=== PATIENT | female | born 1960 | race Caucasian/White ===

== ENCOUNTER → 2019-10-12 13:05 | Outpatient (BNVA) | payer OTHER, SELFPAY | PROVIDERS: Family Provider Family Medicine; PCP Family Medicine; Visit Provider Internal Medicine Rheumatology | DX: M45.9 Ankylosing spondylitis of unspecified sites in spine (principal); M06.4 Inflammatory polyarthropathy; K21.9 Gastro-esophageal reflux disease without esophagitis; Z79.899 Other long term (current) drug therapy; F17.210 Nicotine dependence, cigarettes, uncomplicated | CPT/HCPCS: 99213 ==

== ENCOUNTER 2020-08-21 14:03 | Outpatient (CLI) | payer OTHER, SELFPAY ==
--- NOTE | 2020-08-21 14:09 | CT_ITS ---
WS: [id number] CT NECK TECHNIQUE: Contrast-enhanced CT of the neck with coronal and sagittal reformatted images. CLINICAL INFORMATION: NECK MASS COMPARISON: None. DLP: 699.[address] scans at [facility] use at least one of these dose optimization techniques: automat ed exposure control; mA and/or kV adjustment per patient size (includes targeted exams where dose is matched to clinical indication); or iterative reconstruction. FINDINGS: Parotid glands are normal. Normal submandibular glands. Tongue base is normal in appearance. Normal p arapharyngeal fat. Mastoid air cells and paranasal sinuses are well aerated. Normal posterior nasopharynx. No evidence of supraglottic or glottic mass. Normal epiglottis. Normal piriform sinuses. Normal subglottic airway. Enlarged right neck lymph node/mass measuring 2.0 x 1.7 x 2.3 cm. This is posterior to the right subm andibular gland and anterior to the sternocleidomastoid, just inferior to the parotid tail. No other enlarged cervical lymph nodes. Partially visualized intracranial contents are normal. Lung apices are well aerated. CT/CT neck w con* [id number] IMPRESSION: 1. Enlarged level 2 right neck cervical lymph node/mass measuring 2.0 x 1.7 x 2.3 CM. Findings are nonspecific but suspicious for neoplasm. Recommend ENT con sult and/or ultrasound-guided FNA for further evaluation 2. No evidence of supraglottic or glottic mass. Normal epiglottis. Subglottic airway is normal. 3. Paranasal sinuses and mastoid air cells are well aerated.
[2020-08-21] MEDS: iohexol 300 mg/mL 100 mL Btl IV (14:57)
== END 2020-08-21 14:04 | disposition home or self-care (01) ==
LOC: RAD 14:08
PROVIDERS: PCP Family Medicine; Visit Provider Family Medicine
DX: R22.1 Localized swelling, mass and lump, neck (principal)
CPT/HCPCS: 70491

== ENCOUNTER 2020-09-04 07:04 | Outpatient (CLI) | payer OTHER, SELFPAY ==
--- NOTE | 2020-09-04 07:30 | US_ITS ---
NOTE: Order was edited; original sign date/time 09/04/2020 1228 WS: [id number] INDICATION: right neck mass TECHNIQUE: Ultrasound-guided FNA FINDINGS: The procedure including risks, benefits, and complications were discussed with the patient who agreed to proceed. Using sterile technique the patient was prepped and draped in the usual sterile fashion. After 1% lidocaine using ultrasound guidance 5 passes were made into the right neck mass. No immediate complications. Pathology was present for slide preparation. [facility] US/US guide needle placela [id number] IMPRESSION: Uncomplicated ultrasound-guided FNA
[2020-09-06 10:36] LABS: Miscellaneous Test See Scanned Lab Rpt
== END 2020-09-04 07:05 | disposition home or self-care (01) ==
PROVIDERS: PCP Family Medicine; Visit Provider Family Medicine
DX: R22.1 Localized swelling, mass and lump, neck (principal)
CPT/HCPCS: 10005; 38505; 76942; 88305

== ENCOUNTER 2020-09-26 12:51 | Outpatient (CLI) | payer OTHER, SELFPAY ==
--- NOTE | 2020-09-26 18:36 | ONC CON_ITS ---
Dr. Flores New Patient Note Patient: Yessica Youngblood Unit #: [id number]: 1960 Dicatated By: Anmol Flores M.D.Date of Visit: Sep 26, 2020 Onc MED New Patient/Consult Referring Physician: Dr. BENITA STANFORD M.D. Chief Complaint: Lymphoma. History of Present Illness: This is a 60-year-old woman with right cervical lymphadenopathy and suspected lymphoma. She has a longstanding history of ankylosing spondylitis. She had previously been on treatment with methotrexate for 5 or 6 years. She opted to stop taking it about a year ago. Sometime around May she had become aware of a knot on the right side of her neck. At first it seemed to be enlarging, but then got smaller again. Her neck CT on 08/21/2020 showed an enlarged right lymph node/mass just posterior to the right submandibular gland and anterior to the sternocleidomastoid muscle. It measured 2.0 x 1.7 x 2.3 cm. There were no other enlarged cervical lymph nodes noted. The findings were felt to be suspicious for neoplasm. She then underwent ultrasound guided fine-needle aspiration on 09/04/2020. Cytology showed scattered mononuclear lymphoid elements with air drying artifact and degenerative changes. There was minimal cellularity present on the sample. Flow cytometry reported a monotypic B-cell population comprising approximately 20% of the total cellularity. The B cells were positive for CD45, CD19 (dim expression), CD20, CD10, FMC 7, and kappa light chain. They were negative for CD5 and CD23. The findings were suggestive of involvement by B-cell neoplasm with a germinal center phenotype with the reported differential to include follicular lymphoma, diffuse large B-cell lymphoma, and Burkitt lymphoma. She has been feeling pretty good generally, though given her family history she has been extremely anxious about the prospect of possibly having lymphoma. She describes her energy as medium. She still has normal activity, though. Her appetite has been good. She does not have fever or night sweats. She does have hot flashes, that has been going on for years. She has some sinus symptoms and she reports having a dryish cough. Her breathing is sometimes heavy. She does not complain of chest pain. She has been having loose stools for least 5 years, presumably irritable bowel syndrome. Lately it has been a little worse. She has no other GI complaints. She has some urgency with urination. She has back pain and some joint pain associated with the ankylosing spondylitis, but that has not changed. She has minor headaches. She has no focal neurologic symptoms. She does report that she bruises very easily. Past Medical History: Her medical history includes ankylosing spondylitis and irritable bowel syndrome. Past Surgical History: Her other surgical/procedural history includes D & C, ovarian biopsy, hysterectomy in 1998, and repair of rectal fissure in 1985. Medications: Sleep Aid 1 (25 mg) Tablet Oral at bedtime Allergies: Y-Gesic Social History: Ms. Youngblood is . 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 She has a history of smoking 1/2 pack of cigarettes daily. She had quit smoking 20 years ago, but she then started again. She is currently smoking just 1 or 2 cigarettes/day. She has had only rare alcohol use. Family History: Father of follicular lymphoma. Mother still living at age 82. She has ankylosing spondylitis and she has been treated for breast cancer. Her sister and daughters also have ankylosing spondylitis. Review Of Symptoms: Constitutional - She has generally been feeling okay. She's noticed a slight decrease in her energy but she is still able to do all her normal activities. She works full-time. Her appetite is good and weight is stable. No fever or night sweats. She has hot flashes. ECOG score is 0, Eyes - No change in vision, ENMT - No hearing loss or tinnitus. She has chronic sinusitis. No mouth sores. No sore throat or difficulty swallowing, Hematologic/Lymphatic - She bruises easily, Respiratory - She has occasional shortness of breath. She has a persistent dry cough. No pleuritic pain or hemoptysis, Cardiovascular - No angina pain. No palpitations, Gastrointestinal - No nausea or vomiting. No heartburn or acid reflux. She reports loose stools. No constipation. No blood in the stool or black stools, Genitourinary (F) - No dysuria or hematuria. No urinary frequency. She has urgency, no incontinence, Musculoskeletal - She has intermittent generalized joint pain and she has back pain associated with her ankylosing spondylitis, Integumentary - No skin rash, Neurologic - She has minor headaches. No dizziness. No numbness or tingling. No other focal neurologic symptoms, Psychiatric - She has anxiety. No depression. She has difficulty falling asleep. She is taking an over the counter sleep aid. Vital Signs: Performed on Sep 26, 2020 13:52: 0, 29.80, 1.84 sq.m, 64 in, 99 %, 75 /min, 16 /min, 152/74 mm(hg) (HIGH), 98.9 F (HIGH), and 173.6 lbs (HIGH). Physical Examination: Constitutional - She appears to be in good general health, Eyes - Sclerae nonicteric. Conjunctivae clear, ENMT - No lesions noted in the oral cavity, Neck - No mass or thyromegaly, Hematologic/Lymphatic - There is a firm, 1 cm node palpable in the submandibular area on the right side. There is no other cervical, clavicular, or axillary adenopathy noted, Respiratory - Lungs are clear with good air movement bilaterally, Cardiovascular - Heart rhythm is regular. There is no murmur, gallop, or rub noted, Abdomen - Soft and non-tender. Liver and spleen are not enlarged. There is no abdominal mass or ascites noted and there is no inguinal adenopathy, Extremities - No edema. Pedal pulses are palpable bilaterally, Integumentary - No rashes. No suspicious skin lesions noted, Neurologic - No focal neurologic deficits noted. Problem List: 1. Right cervical lymphadenopathy. She underwent FNA biopsy on 09/04/2020. Cytology was nondiagnostic. Flow cytometry showed monotypic B cells which were felt to be suspicious for lymphoma. 2. She has longstanding ankylosing spondylitis, previously on methotrexate for 5 or 6 years. It was stopped 1 year ago. 3. Irritable bowel syndrome. Problems Addressed with this Encounter and Plan: Right cervical lymphadenopathy. Flow cytometry on an FNA biopsy showed monotypic B cells which were felt to be suspicious for lymphoma. This developed in the setting of previous methotrexate therapy for ankylosing spondylitis. It was stopped about a year ago. The cytology and flow cytometry findings were reviewed with the patient and we discussed the clinical implications. She is aware that the biopsy sample was very small and insufficient for a definitive diagnosis. It is, nonetheless, suspicious for lymphoma, but she will require additional biopsy to confirm the diagnosis and accurately categorize the lymphoma. I suspect that it is going to be low-grade and it is interesting to speculate to what extent the methotrexate may have contributed to its development. She has already arranged to have her further evaluation at [facility] in [place], [place]. It will no doubt include a repeat biopsy and a complete staging evaluation. She is advised that we can assist with any treatment or follow-up care that needs to be provided locally. Signed By: Anmol Flores M.D. <<Signature on File>>
== END 2020-09-26 12:52 | disposition home or self-care (01) ==
LOC: ONCMED 12:52
PROVIDERS: PCP Family Medicine; Visit Provider Internal Medicine Medical Oncology
DX: R59.0 Localized enlarged lymph nodes (principal); R79.89 Other specified abnormal findings of blood chemistry; M45.9 Ankylosing spondylitis of unspecified sites in spine; F17.210 Nicotine dependence, cigarettes, uncomplicated; Z79.899 Other long term (current) drug therapy
CPT/HCPCS: 99204

== ENCOUNTER → 2021-12-10 10:58 | Outpatient (BNVA) | payer OTHER, SELFPAY | PROVIDERS: PCP Family Medicine; Referring Provider Family Medicine; Visit Provider Orthopaedic Surgery | DX: S92.902A Unspecified fracture of left foot, initial encounter for closed fracture (principal); X58.XXXA Exposure to other specified factors, initial encounter | CPT/HCPCS: 73630 ==

== ENCOUNTER 2021-12-20 15:08 | Outpatient (CLI) | payer OTHER, SELFPAY ==
--- NOTE | 2021-12-20 15:30 | MM_ITS ---
WS: [id number] VIEWS: MLO and CC views both breasts. 3D digital tomosynthesis is also included in this exam. Comparison made with prior exam of 11/12/2015, 09/08/2018, 07/30/2020. Findings: A new 1 cm sharply circumscribed nodule is noted in the upper posterior left breast on the MLO view o nly. This lesion does not have suspicious appearance. Exaggerated craniocaudal and 90 degree lateral views are recommended as well as regional ultrasound for further workup. Remaining aspects of both br easts are unchanged. No suspicious calcification or architectural distortion in either breast.Scatter ed fibroglandular densities. MM/[place] [id number] Impression: BI-RADS: 0-Incomplete: Need additional imaging evaluation FOLLOW-UP: Need Additional Imaging This mammogram was also analyzed by the Computer Aided Detection System R2 Imag e Mechanic Recovery.
== END 2021-12-20 15:09 | disposition home or self-care (01) ==
LOC: RAD 15:12
PROVIDERS: PCP Family Medicine; Visit Provider Family Medicine
DX: Z12.31 Encounter for screening mammogram for malignant neoplasm of breast (principal)
CPT/HCPCS: 77063; 77067

== ENCOUNTER → 2022-01-07 15:38 | Outpatient (BNVA) | payer OTHER, SELFPAY | PROVIDERS: PCP Family Medicine; Visit Provider Physician Assistant | DX: M84.375D Stress fracture, left foot, subsequent encounter for fracture with routine healing (principal) | CPT/HCPCS: 73620 ==

== ENCOUNTER 2022-01-15 13:44 | Outpatient (CLI) | payer OTHER, SELFPAY ==
--- NOTE | 2022-01-15 14:03 | MM_ITS ---
WS: [id number] LEFT 3D TOMOSYNTHESIS DIGITAL MAMMOGRAPHY WITH CAD CLINICAL INFORMATION: ABNORMAL MAMMOGRAM COMPARISON: December 20, 2021 TECHNIQUE: 3 views of the left breast were obtained. FINDINGS: Scattered fibroglandular densities of the left breast. Stable 1.3 cm lymph node in the upper posterio r LEFT breast along the axillary tail is unchanged. Ultrasound is pending. ULTRASOUND BREAST LEFT TECHNIQUE: Ultrasound left breast focused area of concern. CLINICAL INFORMATION: ABNORMAL MAMMOGRAM FINDINGS: Ultrasound LEFT axilla in the area of concern. At the 3:00 position 6 cm from the nipple is a 1.3 x 0 .8 x 1.2 cm enlarged lymph node with cortical thickening. This has an abnormal appearance. Consider f urther evaluation ultrasound-guided biopsy. See comment below. MM/[place] [id number] IMPRESSION: Abnormal lymph node LEFT axillary tail. Patient with reported histo ry of recent lymphoma diagnosis. No prior chest CT imaging available. Recommend correlation with outside staging examinations as this may be known and related to patient's lymphoma. Otherwise this can be further evaluated with ultrasound guided biopsy. BI-RADS: 4-Suspicious Finding-Biopsy Should Be Considered FOLLOW UP: See Report
== END 2022-01-15 13:45 | disposition home or self-care (01) ==
LOC: RAD 13:45
PROVIDERS: PCP Family Medicine; Visit Provider Family Medicine
DX: R92.8 Other abnormal and inconclusive findings on diagnostic imaging of breast (principal)
CPT/HCPCS: 76642; 77061

== ENCOUNTER → 2022-04-23 15:09 | Outpatient (BNVA) | payer OTHER, SELFPAY | PROVIDERS: PCP Family Medicine; Visit Provider Podiatrist Foot & Ankle Surgery | DX: M79.672 Pain in left foot (principal) | CPT/HCPCS: 73630 ==

== ENCOUNTER → 2022-06-02 13:53 | Outpatient (BNVA) | payer OTHER, SELFPAY | PROVIDERS: PCP Family Medicine; Visit Provider Podiatrist Foot & Ankle Surgery | DX: B35.3 Tinea pedis (principal); L60.3 Nail dystrophy; S92.325G Nondisplaced fracture of second metatarsal bone, left foot, subsequent encounter for fracture with delayed healing; S92.335G Nondisplaced fracture of third metatarsal bone, left foot, subsequent encounter for fracture with delayed healing; S92.355G Nondisplaced fracture of fifth metatarsal bone, left foot, subsequent encounter for fracture with delayed healing; X58.XXXD Exposure to other specified factors, subsequent encounter; S92.355K Nondisplaced fracture of fifth metatarsal bone, left foot, subsequent encounter for fracture with nonunion | CPT/HCPCS: 73630 ==

== ENCOUNTER → 2022-08-20 18:43 | Outpatient (BNVA) | payer OTHER, SELFPAY | PROVIDERS: PCP Family Medicine; Visit Provider Registered Nurse Neonatal Intensive Care | DX: M79.672 Pain in left foot (principal); M84.475A Pathological fracture, left foot, initial encounter for fracture | CPT/HCPCS: 73630 ==

== ENCOUNTER → 2023-04-10 11:49 | Outpatient (BNVA) | payer OTHER, SELFPAY | PROVIDERS: PCP Family Medicine; Visit Provider Nurse Practitioner Family | DX: I10 Essential (primary) hypertension (principal); F41.9 Anxiety disorder, unspecified; E66.9 Obesity, unspecified | CPT/HCPCS: 80053; 80061; 84443 ==

== ENCOUNTER 2023-04-13 08:44 | Outpatient (CLI) | payer OTHER, SELFPAY ==
--- NOTE | 2023-04-13 08:53 | US_ITS ---
WS: [id number] BILATERAL 3D TOMOSYNTHESIS DIGITAL DIAGNOSTIC MAMMOGRAPHY WITH CAD CLINICAL INFORMATION: ABNORMAL MAMMO HISTORY: Previous biopsy of LEFT axillary lymph node recommended January 15, 2022, however, patient esdras chun undergoing evaluation/surveillance at [facility] for lymphoma by Dr. Stubbs. Patient reports Bi opsy deferred by her physicians at [facility]. Biopsy was not performed. Patient is back today fo r annual surveillance. COMPARISON: January 15, 2022 TECHNIQUE: Bilateral CC, MLO, and ML views. FINDINGS: Scattered fibroglandular densities bilaterally. Previously described LEFT extra-axial lymph node has decreased in size slightly today measuring 1.1 cm. Ultrasound is pending. Otherwise no suspicious focal mass, asymmetry, calcifications, or architectural distortion. ULTRASOUND BREAST LEFT TECHNIQUE: Ultrasound left breast focused area of concern. CLINICAL INFORMATION: ABNORMAL MAMMO COMPARISON: January 15, 2022 FINDINGS: Ultrasound LEFT axilla in the area of concern. At the 3:00 position 6 cm from the nipple is a 1.0 x 0 .6 x 0.8 cm lymph node. This is decreased in size compared to previous with persistent fatty hilum. N o significant cortical thickening. Patient reported currently being evaluated at [facility] for ly mphoma. US/US breast LT limited* [id number] IMPRESSION: BI-RADS: 2-Benign FOLLOW UP: 1 Year Follow-up Recommend return to annual screening mammography.
== END 2023-04-13 08:45 | disposition home or self-care (01) ==
PROVIDERS: PCP Family Medicine; Visit Provider Family Medicine
DX: R92.8 Other abnormal and inconclusive findings on diagnostic imaging of breast (principal)
CPT/HCPCS: 76642; 77062; G0279

== ENCOUNTER 2024-04-19 08:29 | Oncology outpatient (recurring) (ONCR) | payer OTHER, SELFPAY ==
[2024-04-19 09:09] LABS: Basophils # 0.1 10^3/uL (0.0-0.1); Eosinophils # 0.2 10^3/uL (0.0-0.8); Eosinophils % 2.9 %; Hematocrit 41.4 % (36-47); Lymphocytes # 0.7 10^3/uL (0.8-4.8); Lymphocytes % 9.6 %; Mean Corpuscular HGB Conc 31.6 g/dL (30-55); Mean Corpuscular Hemoglobin 27.4 pg (27-33); Mean Corpuscular Volume 86.6 fl (85-98); Monocytes # 0.3 10^3/uL (0.2-0.9); Monocytes % 4.7 %; Neutrophils # 5.96 10^3/uL (1.8-7.7); Neutrophils % 81.4 %; Nucleated Red Blood Cells % 0 %; Platelet Count 228 10^3/cmm (157-399); Red Blood Count 4.78 10^6/uL (3.85-5.65); Red Cell Distribution Width 13.5 % (12.1-15.1); White Blood Count 7.31 10^3/uL (3.29-11.43)
[2024-04-19 09:35] LABS: Alanine Aminotransferase 15 U/L (0-33); Albumin Level 4.3 g/dL (3.5-5.2); Alkaline Phosphatase 137 U/L (35-105); Anion Gap 18.2 (5-19); Aspartate Amino Transferase 26 U/L (0-32); Blood Urea Nitrogen 14 mg/dL (8-23); Calcium 10.5 mg/dL (8.5-10.5); Carbon Dioxide 24 mmol/L (22-29); Chloride 97 mmol/L (98-107); Globulin 3.1 g/dL (1.3-4.6); Glomerular Filtration Rate 56.2 mL/min (90-130); Glucose 138 mg/dL (65-115); Lactate Dehydrogenase 221 U/L (135-214); Osmolality Calculated 283 mOsm/kg (285-295); Potassium 4.2 mmol/L (3.5-5.1); Sodium 135 mmol/L (136-145); Total Bilirubin 0.2 mg/dL (0.15-1.2); Total Protein 7.4 g/dL (6.6-8.7)
== END 2024-05-07 23:55 | disposition home or self-care (01) ==
PROVIDERS: PCP Family Medicine; Visit Provider Internal Medicine Medical Oncology
DX: C82.38 Follicular lymphoma grade IIIa, lymph nodes of multiple sites (principal)
CPT/HCPCS: 36415; 80053; 83615; 85025

== ENCOUNTER 2024-06-06 13:00 | Oncology outpatient (recurring) (ONCR) | payer OTHER, SELFPAY ==
[2024-05-30] VITALS (14 sets, daily range): BP systolic 104–149; BP diastolic 58–79; PULSE 59–101; RESP 16–20; TEMP 36.3–38.6; O2SAT 95–99
[2024-05-30 08:20] LABS: Basophils # 0.1 10^3/uL (0.0-0.1); Basophils % 1.2 %; Eosinophils # 0.2 10^3/uL (0.0-0.8); Hematocrit 35.4 % (36-47); Lymphocytes # 0.5 10^3/uL (0.8-4.8); Lymphocytes % 7.2 %; Mean Corpuscular HGB Conc 32.8 g/dL (30-55); Mean Corpuscular Hemoglobin 27.8 pg (27-33); Mean Corpuscular Volume 84.7 fl (85-98); Mean Platelet Volume 10.2 fL (7.4-10.4); Monocytes # 0.5 10^3/uL (0.2-0.9); Monocytes % 6.5 %; Neutrophils # 6.15 10^3/uL (1.8-7.7); Neutrophils % 81.4 %; Nucleated Red Blood Cells % 0 %; Platelet Count 341 10^3/cmm (157-399); Red Blood Count 4.18 10^6/uL (3.85-5.65); Red Cell Distribution Width 13.4 % (12.1-15.1); White Blood Count 7.55 10^3/uL (3.29-11.43)
[2024-05-30 09:22] LABS: Hepatitis B Core AB, Total Non-Reactive (Nonreactive); Hepatitis B Surface AB < 3.5 (11.5-1000); Hepatitis B Surface Antigen Non-Reactive (Nonreactive)
[2024-05-30 09:42] LABS: Alanine Aminotransferase 16 U/L (0-33); Albumin Level 3.9 g/dL (3.5-5.2); Alkaline Phosphatase 227 U/L (35-105); Anion Gap 19.5 (5-19); Aspartate Amino Transferase 28 U/L (0-32); Blood Urea Nitrogen 12 mg/dL (8-23); Calcium 10.3 mg/dL (8.5-10.5); Carbon Dioxide 23 mmol/L (22-29); Chloride 97 mmol/L (98-107); Creatinine Clr Calc Pharmacy 62.1677; Globulin 3.3 g/dL (1.3-4.6); Glomerular Filtration Rate 63.4 mL/min (90-130); Glucose 105 mg/dL (65-115); Osmolality Calculated 282 mOsm/kg (285-295); Potassium 3.5 mmol/L (3.5-5.1); Sodium 136 mmol/L (136-145); Total Bilirubin 0.2 mg/dL (0.15-1.2); Total Protein 7.2 g/dL (6.6-8.7)
[2024-05-30] MEDS: sodium chloride 0.9% 250 ML 75 ML IV (09:57)
[2024-05-30] MEDS: diphenhydrAMINE 50 mg/mL SDV 1mL 25 MG IVP ×2 (09:58→12:13)
[2024-05-30] MEDS: acetaminophen 325 mg Tablet 650 MG PO (09:58)
[2024-05-30] MEDS: rituximab-abbs 500 MG, rituximab-abbs 150 MG in sodium chloride 0.9% 500 ML 43.8 MG IV (10:45)
[2024-05-30] MEDS: sodium chloride 0.9% 500 ML 600 ML IV (12:05)
[2024-05-30] MEDS: meperidine 50 mg/mL INJ 25 MG IVP (12:10)
[2024-05-30] MEDS: methylPREDNISolone sod succ 125 mg/2 mL INJ 60 MG IV (12:15)
[2024-05-30] MEDS: ibuprofen 600 mg Tablet PO (12:29)
[2024-05-30] MEDS: sodium chloride 0.9% 1,000 ML 75 ML IV (13:21)
[2024-06-06 12:50] LABS: Basophils # 0.1 10^3/uL (0.0-0.1); Basophils % 0.8 %; Eosinophils # 0.3 10^3/uL (0.0-0.8); Eosinophils % 4.7 %; Hematocrit 36.7 % (36-47); Lymphocytes # 0.4 10^3/uL (0.8-4.8); Lymphocytes % 5.5 %; Mean Corpuscular HGB Conc 30.5 g/dL (30-55); Mean Corpuscular Hemoglobin 27.2 pg (27-33); Mean Corpuscular Volume 89.1 fl (85-98); Mean Platelet Volume 10.7 fL (7.4-10.4); Monocytes # 0.3 10^3/uL (0.2-0.9); Monocytes % 3.4 %; Neutrophils # 6.14 10^3/uL (1.8-7.7); Neutrophils % 84.1 %; Nucleated Red Blood Cells % 0 %; Platelet Count 259 10^3/cmm (157-399); Red Blood Count 4.12 10^6/uL (3.85-5.65); Red Cell Distribution Width 14.1 % (12.1-15.1)
[2024-06-06 13:11] LABS: Alanine Aminotransferase 22 U/L (0-33); Albumin Level 3.5 g/dL (3.5-5.2); Alkaline Phosphatase 232 U/L (35-105); Anion Gap 17.7 (5-19); Aspartate Amino Transferase 26 U/L (0-32); Blood Urea Nitrogen 13 mg/dL (8-23); Carbon Dioxide 23 mmol/L (22-29); Chloride 95 mmol/L (98-107); Creatinine Clr Calc Pharmacy 62.1677; Globulin 3.6 g/dL (1.3-4.6); Glomerular Filtration Rate 63.4 mL/min (90-130); Glucose 81 mg/dL (65-115); Osmolality Calculated 273 mOsm/kg (285-295); Potassium 3.7 mmol/L (3.5-5.1); Sodium 132 mmol/L (136-145); Total Bilirubin 0.3 mg/dL (0.15-1.2); Total Protein 7.1 g/dL (6.6-8.7)
== END 2024-06-06 23:59 | disposition home or self-care (01) ==
PROVIDERS: Nurse Practitioner Family; PCP Family Medicine; Visit Provider Internal Medicine Hematology & Oncology
DX: Z53.9 Procedure and treatment not carried out, unspecified reason; C82.38 Follicular lymphoma grade IIIa, lymph nodes of multiple sites
CPT/HCPCS: 36415; 80053; 85025; 86705; 86706; 87340; 96375; 96376; 96413; 96415; J1200; J2175; J2919; J7030; J7040; J7050; Q5115

== ENCOUNTER 2024-06-14 11:30 | Oncology outpatient (recurring) (ONCR) | payer OTHER, SELFPAY ==
[2024-06-07] VITALS (9 sets, daily range): BP systolic 100–143; BP diastolic 56–87; PULSE 61–94; RESP 16; TEMP 36.8–37.1; O2SAT 95–98
[2024-06-07] MEDS: sodium chloride 0.9% 250 ML 75 ML IV (12:15)
[2024-06-07] MEDS: acetaminophen 325 mg Tablet 650 MG PO (12:16)
[2024-06-07] MEDS: diphenhydrAMINE 50 mg/mL SDV 1mL 25 MG IVP (12:16)
[2024-06-07] MEDS: methylPREDNISolone sod succ 125 mg/2 mL INJ IVP (12:17)
[2024-06-07] MEDS: rituximab-abbs 500 MG, rituximab-abbs 150 MG in sodium chloride 0.9% 500 ML 50 MG IV (13:01)
[2024-06-13 12:49] LABS: Basophils # 0.1 10^3/uL (0.0-0.1); Basophils % 0.9 %; Eosinophils # 0.5 10^3/uL (0.0-0.8); Hematocrit 36.7 % (36-47); Lymphocytes # 0.6 10^3/uL (0.8-4.8); Lymphocytes % 5.5 %; Mean Corpuscular HGB Conc 31.9 g/dL (30-55); Mean Corpuscular Hemoglobin 27.3 pg (27-33); Mean Corpuscular Volume 85.7 fl (85-98); Mean Platelet Volume 10.9 fL (7.4-10.4); Monocytes # 0.8 10^3/uL (0.2-0.9); Monocytes % 6.9 %; Neutrophils # 9.03 10^3/uL (1.8-7.7); Neutrophils % 81.1 %; Nucleated Red Blood Cells % 0 %; Platelet Count 233 10^3/cmm (157-399); Red Blood Count 4.28 10^6/uL (3.85-5.65); Red Cell Distribution Width 14.5 % (12.1-15.1); White Blood Count 11.14 10^3/uL (3.29-11.43)
[2024-06-13 13:10] LABS: Alanine Aminotransferase 59 U/L (0-33); Alkaline Phosphatase 284 U/L (35-105); Aspartate Amino Transferase 44 U/L (0-32); Blood Urea Nitrogen 14 mg/dL (8-23); Calcium 10.1 mg/dL (8.5-10.5); Carbon Dioxide 26 mmol/L (22-29); Chloride 96 mmol/L (98-107); Globulin 3.2 g/dL (1.3-4.6); Glomerular Filtration Rate 56.2 mL/min (90-130); Glucose 100 mg/dL (65-115); Osmolality Calculated 275 mOsm/kg (285-295); Sodium 132 mmol/L (136-145); Total Bilirubin 0.5 mg/dL (0.15-1.2); Total Protein 7.2 g/dL (6.6-8.7)
[2024-06-13 13:12] LABS: Anion Gap 13.7 (5-19); Lactate Dehydrogenase 222 U/L (135-214); Potassium 3.7 mmol/L (3.5-5.1)
[2024-06-14 12:10] VITALS: BP 109/57; PULSE 61; RESP 16; TEMP 36.7; O2SAT 98
[2024-06-14] MEDS: sodium chloride 0.9% 250 ML 75 ML IV (12:25)
[2024-06-14] MEDS: diphenhydrAMINE 50 mg/mL SDV 1mL 25 MG IVP (12:25)
[2024-06-14] MEDS: acetaminophen 325 mg Tablet 650 MG PO (12:25)
[2024-06-14] MEDS: methylPREDNISolone sod succ 125 mg/2 mL INJ IV (12:26)
[2024-06-14] MEDS: rituximab-abbs 500 MG, rituximab-abbs 150 MG in sodium chloride 0.9% 500 ML 108 MG IV (13:10)
[2024-06-14 13:15] VITALS: BP 109/67; PULSE 61; RESP 16; TEMP 36.5; O2SAT 99
[2024-06-14 13:45] VITALS: BP 112/66; PULSE 59; RESP 16; TEMP 36.8; O2SAT 96
[2024-06-14 14:15] VITALS: BP 115/67; PULSE 60; RESP 16; TEMP 36.6; O2SAT 98
[2024-06-14 15:34] VITALS: BP 108/65; PULSE 71; TEMP 36.7; O2SAT 99
== END 2024-06-14 23:59 | disposition home or self-care (01) ==
PROVIDERS: Nurse Practitioner Family; PCP Family Medicine; Visit Provider Internal Medicine Hematology & Oncology
DX: Z53.9 Procedure and treatment not carried out, unspecified reason; Z51.12 Encounter for antineoplastic immunotherapy; C82.38 Follicular lymphoma grade IIIa, lymph nodes of multiple sites; Z79.899 Other long term (current) drug therapy
CPT/HCPCS: 36415; 80053; 83615; 85025; 96375; 96413; 96415; J1200; J2919; J7040; J7050; Q5115

== ENCOUNTER 2024-07-06 12:30 | Oncology outpatient (recurring) (ONCR) | payer OTHER, SELFPAY ==
[2024-06-20 13:20] LABS: Basophils # 0.2 10^3/uL (0.0-0.1); Basophils % 3.1 %; Eosinophils # 0.6 10^3/uL (0.0-0.8); Eosinophils % 11.5 %; Hematocrit 39.2 % (36-47); Lymphocytes # 0.6 10^3/uL (0.8-4.8); Mean Corpuscular HGB Conc 30.4 g/dL (30-55); Mean Corpuscular Hemoglobin 27.2 pg (27-33); Mean Corpuscular Volume 89.5 fl (85-98); Mean Platelet Volume 11.6 fL (7.4-10.4); Monocytes # 0.3 10^3/uL (0.2-0.9); Monocytes % 5.9 %; Neutrophils % 65.8 %; Nucleated Red Blood Cells % 0 %; Platelet Count 209 10^3/cmm (157-399); Red Blood Count 4.38 10^6/uL (3.85-5.65); Red Cell Distribution Width 15.4 % (12.1-15.1); White Blood Count 5.47 10^3/uL (3.29-11.43)
[2024-06-20 13:40] LABS: Alanine Aminotransferase 302 U/L (0-33); Albumin Level 4.3 g/dL (3.5-5.2); Alkaline Phosphatase 330 U/L (35-105); Aspartate Amino Transferase 191 U/L (0-32); Blood Urea Nitrogen 13 mg/dL (8-23); Carbon Dioxide 24 mmol/L (22-29); Chloride 99 mmol/L (98-107); Globulin 3.1 g/dL (1.3-4.6); Glomerular Filtration Rate 72.7 mL/min (90-130); Glucose 73 mg/dL (65-115); Osmolality Calculated 281 mOsm/kg (285-295); Sodium 136 mmol/L (136-145); Total Bilirubin 0.4 mg/dL (0.15-1.2); Total Protein 7.4 g/dL (6.6-8.7)
[2024-06-20 13:45] LABS: Anion Gap 16.8 (5-19); Potassium 3.8 mmol/L (3.5-5.1)
[2024-06-27 12:38] LABS: Basophils # 0.2 10^3/uL (0.0-0.1); Basophils % 3.5 %; Eosinophils # 0.3 10^3/uL (0.0-0.8); Lymphocytes # 0.9 10^3/uL (0.8-4.8); Lymphocytes % 14.8 %; Mean Corpuscular HGB Conc 32.1 g/dL (30-55); Mean Corpuscular Hemoglobin 28.5 pg (27-33); Mean Corpuscular Volume 88.8 fl (85-98); Mean Platelet Volume 10.3 fL (7.4-10.4); Monocytes # 0.4 10^3/uL (0.2-0.9); Monocytes % 6.1 %; Neutrophils # 4.15 10^3/uL (1.8-7.7); Neutrophils % 69.8 %; Nucleated Red Blood Cells % 0 %; Platelet Count 209 10^3/cmm (157-399); Red Blood Count 4.28 10^6/uL (3.85-5.65); Red Cell Distribution Width 17.2 % (12.1-15.1); White Blood Count 5.95 10^3/uL (3.29-11.43)
[2024-06-27 12:55] LABS: Alanine Aminotransferase 150 U/L (0-33); Albumin Level 4.4 g/dL (3.5-5.2); Alkaline Phosphatase 298 U/L (35-105); Aspartate Amino Transferase 53 U/L (0-32); Blood Urea Nitrogen 17 mg/dL (8-23); Calcium 9.8 mg/dL (8.5-10.5); Carbon Dioxide 25 mmol/L (22-29); Chloride 103 mmol/L (98-107); Creatinine Clr Calc Pharmacy 70.1477; Globulin 2.6 g/dL (1.3-4.6); Glomerular Filtration Rate 72.7 mL/min (90-130); Glucose 127 mg/dL (65-115); Osmolality Calculated 291 mOsm/kg (285-295); Sodium 139 mmol/L (136-145); Total Bilirubin 0.3 mg/dL (0.15-1.2)
[2024-06-27 13:01] LABS: Anion Gap 14.7 (5-19); Lactate Dehydrogenase 205 U/L (135-214); Potassium 3.7 mmol/L (3.5-5.1)
[2024-07-04 12:47] LABS: Basophils # 0.2 10^3/uL (0.0-0.1); Basophils % 3.9 %; Eosinophils # 0.2 10^3/uL (0.0-0.8); Eosinophils % 5.3 %; Hematocrit 38.1 % (36-47); Lymphocytes # 0.7 10^3/uL (0.8-4.8); Lymphocytes % 16.5 %; Mean Corpuscular HGB Conc 32.5 g/dL (30-55); Mean Corpuscular Hemoglobin 28.6 pg (27-33); Mean Corpuscular Volume 87.8 fl (85-98); Mean Platelet Volume 10.2 fL (7.4-10.4); Monocytes # 0.4 10^3/uL (0.2-0.9); Monocytes % 9.3 %; Neutrophils # 2.78 10^3/uL (1.8-7.7); Neutrophils % 64.5 %; Nucleated Red Blood Cells % 0 %; Platelet Count 163 10^3/cmm (157-399); Red Blood Count 4.34 10^6/uL (3.85-5.65); White Blood Count 4.31 10^3/uL (3.29-11.43)
[2024-07-04 13:04] LABS: Alanine Aminotransferase 46 U/L (0-33); Albumin Level 4.2 g/dL (3.5-5.2); Alkaline Phosphatase 229 U/L (35-105); Anion Gap 13.2 (5-19); Aspartate Amino Transferase 35 U/L (0-32); Blood Urea Nitrogen 15 mg/dL (8-23); Calcium 9.5 mg/dL (8.5-10.5); Carbon Dioxide 25 mmol/L (22-29); Chloride 100 mmol/L (98-107); Creatinine Clr Calc Pharmacy 70.1477; Globulin 2.5 g/dL (1.3-4.6); Glomerular Filtration Rate 72.7 mL/min (90-130); Glucose 115 mg/dL (65-115); Lactate Dehydrogenase 163 U/L (135-214); Osmolality Calculated 282 mOsm/kg (285-295); Potassium 3.2 mmol/L (3.5-5.1); Sodium 135 mmol/L (136-145); Total Bilirubin 0.3 mg/dL (0.15-1.2); Total Protein 6.7 g/dL (6.6-8.7)
[2024-07-06 12:48] VITALS: BP 124/70; PULSE 64; RESP 16; TEMP 37.4; O2SAT 100
[2024-07-06] MEDS: sodium chloride 0.9% 250 ML 75 ML IV (13:02)
[2024-07-06] MEDS: diphenhydrAMINE 50 mg/mL SDV 1mL 25 MG IVP (13:03)
[2024-07-06] MEDS: acetaminophen 325 mg Tablet 650 MG PO (13:09)
[2024-07-06] MEDS: methylPREDNISolone sod succ 125 mg/2 mL INJ 60 MG IVP (13:12)
[2024-07-06] MEDS: rituximab-abbs 500 MG, rituximab-abbs 150 MG in sodium chloride 0.9% 500 ML 108 MG IV (13:53)
[2024-07-06 13:55] VITALS: BP 105/65; PULSE 60; RESP 16; TEMP 37.4; O2SAT 96
[2024-07-06 16:20] VITALS: BP 113/62; PULSE 78; RESP 17; TEMP 36.6; O2SAT 91
== END 2024-07-07 23:59 | disposition home or self-care (01) ==
PROVIDERS: Nurse Practitioner Family; PCP Family Medicine; Visit Provider Internal Medicine Hematology & Oncology
DX: Z53.9 Procedure and treatment not carried out, unspecified reason; Z51.12 Encounter for antineoplastic immunotherapy; C82.38 Follicular lymphoma grade IIIa, lymph nodes of multiple sites; Z79.899 Other long term (current) drug therapy
CPT/HCPCS: 36415; 80053; 83615; 85025; 96375; 96413; 96415; J1200; J2919; J7040; J7050; Q5115

== ENCOUNTER 2024-08-03 12:45 | Oncology outpatient (recurring) (ONCR) | payer OTHER, SELFPAY ==
[2024-07-12 13:01] LABS: Basophils # 0.1 10^3/uL (0.0-0.1); Eosinophils # 0.9 10^3/uL (0.0-0.8); Eosinophils % 12.9 %; Hematocrit 39.4 % (36-47); Lymphocytes # 0.9 10^3/uL (0.8-4.8); Lymphocytes % 12.4 %; Mean Corpuscular HGB Conc 32.5 g/dL (30-55); Mean Corpuscular Hemoglobin 28.8 pg (27-33); Mean Corpuscular Volume 88.7 fl (85-98); Monocytes # 0.3 10^3/uL (0.2-0.9); Monocytes % 4.8 %; Neutrophils # 4.54 10^3/uL (1.8-7.7); Nucleated Red Blood Cells % 0 %; Platelet Count 194 10^3/cmm (157-399); Red Blood Count 4.44 10^6/uL (3.85-5.65); Red Cell Distribution Width 18.3 % (12.1-15.1); White Blood Count 6.88 10^3/uL (3.29-11.43)
[2024-07-12 13:23] LABS: Alanine Aminotransferase 28 U/L (0-33); Albumin Level 4.1 g/dL (3.5-5.2); Alkaline Phosphatase 179 U/L (35-105); Anion Gap 14.7 (5-19); Aspartate Amino Transferase 23 U/L (0-32); Blood Urea Nitrogen 10 mg/dL (8-23); Calcium 9.5 mg/dL (8.5-10.5); Carbon Dioxide 27 mmol/L (22-29); Chloride 102 mmol/L (98-107); Globulin 2.2 g/dL (1.3-4.6); Glomerular Filtration Rate 63.4 mL/min (90-130); Glucose 99 mg/dL (65-115); Lactate Dehydrogenase 141 U/L (135-214); Osmolality Calculated 289 mOsm/kg (285-295); Potassium 3.7 mmol/L (3.5-5.1); Sodium 140 mmol/L (136-145); Total Bilirubin 0.2 mg/dL (0.15-1.2); Total Protein 6.3 g/dL (6.6-8.7)
[2024-07-19 13:05] LABS: Basophils # 0.1 10^3/uL (0.0-0.1); Basophils % 1.4 %; Eosinophils # 1.6 10^3/uL (0.0-0.8); Eosinophils % 20.3 %; Hematocrit 39.8 % (36-47); Lymphocytes # 0.8 10^3/uL (0.8-4.8); Lymphocytes % 10.6 %; Mean Corpuscular HGB Conc 31.9 g/dL (30-55); Mean Corpuscular Hemoglobin 28.2 pg (27-33); Mean Corpuscular Volume 88.4 fl (85-98); Monocytes # 0.4 10^3/uL (0.2-0.9); Monocytes % 5.2 %; Neutrophils # 4.92 10^3/uL (1.8-7.7); Neutrophils % 61.7 %; Nucleated Red Blood Cells % 0 %; Platelet Count 129 10^3/cmm (157-399); Red Cell Distribution Width 17.9 % (12.1-15.1); White Blood Count 7.95 10^3/uL (3.29-11.43)
[2024-07-19 13:20] LABS: Alanine Aminotransferase 34 U/L (0-33); Albumin Level 4.3 g/dL (3.5-5.2); Alkaline Phosphatase 153 U/L (35-105); Aspartate Amino Transferase 28 U/L (0-32); Blood Urea Nitrogen 12 mg/dL (8-23); Calcium 9.8 mg/dL (8.5-10.5); Carbon Dioxide 26 mmol/L (22-29); Chloride 101 mmol/L (98-107); Globulin 1.9 g/dL (1.3-4.6); Glomerular Filtration Rate 72.7 mL/min (90-130); Glucose 83 mg/dL (65-115); Osmolality Calculated 285 mOsm/kg (285-295); Sodium 138 mmol/L (136-145); Total Bilirubin 0.2 mg/dL (0.15-1.2); Total Protein 6.2 g/dL (6.6-8.7)
[2024-07-19 13:21] LABS: Anion Gap 14.5 (5-19); Potassium 3.5 mmol/L (3.5-5.1)
[2024-07-19 13:22] LABS: Lactate Dehydrogenase 169 U/L (135-214)
[2024-07-26 12:44] LABS: Basophils % 0.7 %; Eosinophils # 0.1 10^3/uL (0.0-0.8); Hematocrit 37.3 % (36-47); Lymphocytes # 0.5 10^3/uL (0.8-4.8); Mean Corpuscular HGB Conc 32.4 g/dL (30-55); Mean Corpuscular Hemoglobin 29.2 pg (27-33); Mean Corpuscular Volume 89.9 fl (85-98); Mean Platelet Volume 10.9 fL (7.4-10.4); Monocytes # 0.2 10^3/uL (0.2-0.9); Monocytes % 2.8 %; Neutrophils # 5.26 10^3/uL (1.8-7.7); Neutrophils % 87.2 %; Nucleated Red Blood Cells % 0 %; Platelet Count 142 10^3/cmm (157-399); Red Blood Count 4.15 10^6/uL (3.85-5.65); Red Cell Distribution Width 18.3 % (12.1-15.1); White Blood Count 6.03 10^3/uL (3.29-11.43)
[2024-07-26 13:00] LABS: Alanine Aminotransferase 55 U/L (0-33); Albumin Level 4.3 g/dL (3.5-5.2); Alkaline Phosphatase 144 U/L (35-105); Anion Gap 18.2 (5-19); Aspartate Amino Transferase 29 U/L (0-32); Blood Urea Nitrogen 13 mg/dL (8-23); Calcium 10.1 mg/dL (8.5-10.5); Carbon Dioxide 22 mmol/L (22-29); Chloride 98 mmol/L (98-107); Globulin 2.5 g/dL (1.3-4.6); Glomerular Filtration Rate 63.4 mL/min (90-130); Glucose 174 mg/dL (65-115); Lactate Dehydrogenase 140 U/L (135-214); Osmolality Calculated 284 mOsm/kg (285-295); Potassium 3.2 mmol/L (3.5-5.1); Sodium 135 mmol/L (136-145); Total Bilirubin 0.3 mg/dL (0.15-1.2); Total Protein 6.8 g/dL (6.6-8.7)
[2024-08-03 08:06] LABS: Basophils % 0.7 %; Eosinophils % 0.2 %; Hematocrit 40.3 % (36-47); Lymphocytes # 0.6 10^3/uL (0.8-4.8); Lymphocytes % 12.8 %; Mean Corpuscular HGB Conc 32.5 g/dL (30-55); Mean Corpuscular Volume 92.2 fl (85-98); Monocytes # 0.2 10^3/uL (0.2-0.9); Monocytes % 4.4 %; Neutrophils # 3.69 10^3/uL (1.8-7.7); Neutrophils % 81.5 %; Nucleated Red Blood Cells % 0 %; Platelet Count 188 10^3/cmm (157-399); Red Blood Count 4.37 10^6/uL (3.85-5.65); Red Cell Distribution Width 18.9 % (12.1-15.1); White Blood Count 4.53 10^3/uL (3.29-11.43)
[2024-08-03 08:31] LABS: Alanine Aminotransferase 23 U/L (0-33); Albumin Level 4.2 g/dL (3.5-5.2); Alkaline Phosphatase 122 U/L (35-105); Blood Urea Nitrogen 15 mg/dL (8-23); Carbon Dioxide 23 mmol/L (22-29); Chloride 102 mmol/L (98-107); Globulin 2.1 g/dL (1.3-4.6); Glomerular Filtration Rate 63.4 mL/min (90-130); Glucose 130 mg/dL (65-115); Osmolality Calculated 287 mOsm/kg (285-295); Sodium 137 mmol/L (136-145); Total Bilirubin 0.3 mg/dL (0.15-1.2); Total Protein 6.3 g/dL (6.6-8.7)
[2024-08-03 08:32] LABS: Anion Gap 15.8 (5-19); Aspartate Amino Transferase 19 U/L (0-32); Lactate Dehydrogenase 172 U/L (135-214); Potassium 3.8 mmol/L (3.5-5.1)
[2024-08-03] MEDS: acetaminophen 325 mg Tablet 650 MG PO (13:44)
[2024-08-03] MEDS: diphenhydrAMINE 50 mg/mL SDV 1mL 25 MG IVP (13:44)
[2024-08-03 14:30] VITALS: BP 125/71; PULSE 61; RESP 16; TEMP 36.7; O2SAT 99
[2024-08-03] MEDS: rituximab-abbs 500 MG, rituximab-abbs 150 MG in sodium chloride 0.9% 500 ML 108 MG IV (14:39)
[2024-08-03 15:03] VITALS: BP 128/74; PULSE 64; RESP 16; TEMP 36.8; O2SAT 99
[2024-08-03 15:10] VITALS: BP 109/69; PULSE 59; RESP 16; TEMP 35.9; O2SAT 99
[2024-08-03 15:40] VITALS: BP 121/68; PULSE 61; RESP 16; TEMP 36.7; O2SAT 99
[2024-08-03 16:10] VITALS: BP 120/66; PULSE 67; RESP 16; TEMP 36.2; O2SAT 99
== END 2024-08-06 23:59 | disposition home or self-care (01) ==
PROVIDERS: Nurse Practitioner Family; PCP Family Medicine; Visit Provider Internal Medicine
DX: Z53.9 Procedure and treatment not carried out, unspecified reason (principal); Z51.11 Encounter for antineoplastic chemotherapy; C82.38 Follicular lymphoma grade IIIa, lymph nodes of multiple sites; Z79.899 Other long term (current) drug therapy
CPT/HCPCS: 36415; 80053; 83615; 85025; 96375; 96413; 96415; J1200; J7040; Q5115

== ENCOUNTER 2024-08-29 08:00 | Oncology outpatient (recurring) (ONCR) | payer OTHER, SELFPAY ==
[2024-08-10 14:03] LABS: Basophils # 0.1 10^3/uL (0.0-0.1); Basophils % 2.3 %; Eosinophils # 0.4 10^3/uL (0.0-0.8); Eosinophils % 7.6 %; Lymphocytes # 0.7 10^3/uL (0.8-4.8); Lymphocytes % 14.3 %; Mean Corpuscular HGB Conc 32.6 g/dL (30-55); Mean Corpuscular Hemoglobin 29.9 pg (27-33); Mean Corpuscular Volume 91.6 fl (85-98); Mean Platelet Volume 10.7 fL (7.4-10.4); Monocytes # 0.2 10^3/uL (0.2-0.9); Monocytes % 4.3 %; Neutrophils # 3.44 10^3/uL (1.8-7.7); Neutrophils % 70.5 %; Nucleated Red Blood Cells % 0 %; Platelet Count 179 10^3/cmm (157-399); Red Blood Count 3.71 10^6/uL (3.85-5.65); Red Cell Distribution Width 19.1 % (12.1-15.1); White Blood Count 4.88 10^3/uL (3.29-11.43)
[2024-08-10 14:20] LABS: Alanine Aminotransferase 19 U/L (0-33); Albumin Level 3.7 g/dL (3.5-5.2); Alkaline Phosphatase 96 U/L (35-105); Anion Gap 15.6 (5-19); Aspartate Amino Transferase 15 U/L (0-32); Blood Urea Nitrogen 10 mg/dL (8-23); Calcium 8.9 mg/dL (8.5-10.5); Carbon Dioxide 23 mmol/L (22-29); Chloride 102 mmol/L (98-107); Globulin 1.9 g/dL (1.3-4.6); Glomerular Filtration Rate 84.8 mL/min (90-130); Glucose 152 mg/dL (65-115); Lactate Dehydrogenase 121 U/L (135-214); Osmolality Calculated 286 mOsm/kg (285-295); Potassium 3.6 mmol/L (3.5-5.1); Sodium 137 mmol/L (136-145); Total Bilirubin 0.2 mg/dL (0.15-1.2); Total Protein 5.6 g/dL (6.6-8.7)
[2024-08-16 13:10] LABS: Basophils # 0.1 10^3/uL (0.0-0.1); Basophils % 1.7 %; Eosinophils # 0.3 10^3/uL (0.0-0.8); Eosinophils % 5.5 %; Hematocrit 35.3 % (36-47); Lymphocytes # 0.6 10^3/uL (0.8-4.8); Lymphocytes % 9.4 %; Mean Corpuscular HGB Conc 32.3 g/dL (30-55); Mean Corpuscular Hemoglobin 30.1 pg (27-33); Mean Corpuscular Volume 93.1 fl (85-98); Monocytes # 0.5 10^3/uL (0.2-0.9); Monocytes % 8.2 %; Neutrophils # 4.37 10^3/uL (1.8-7.7); Neutrophils % 74.3 %; Nucleated Red Blood Cells % 0 %; Platelet Count 172 10^3/cmm (157-399); Red Blood Count 3.79 10^6/uL (3.85-5.65); Red Cell Distribution Width 19.3 % (12.1-15.1); White Blood Count 5.87 10^3/uL (3.29-11.43)
[2024-08-16 13:31] LABS: Alanine Aminotransferase 30 U/L (0-33); Albumin Level 3.9 g/dL (3.5-5.2); Alkaline Phosphatase 113 U/L (35-105); Anion Gap 13.4 (5-19); Aspartate Amino Transferase 20 U/L (0-32); Blood Urea Nitrogen 11 mg/dL (8-23); Calcium 9.8 mg/dL (8.5-10.5); Carbon Dioxide 24 mmol/L (22-29); Chloride 105 mmol/L (98-107); Globulin 2.2 g/dL (1.3-4.6); Glomerular Filtration Rate 63.4 mL/min (90-130); Glucose 97 mg/dL (65-115); Lactate Dehydrogenase 146 U/L (135-214); Osmolality Calculated 287 mOsm/kg (285-295); Potassium 3.4 mmol/L (3.5-5.1); Sodium 139 mmol/L (136-145); Total Bilirubin 0.2 mg/dL (0.15-1.2); Total Protein 6.1 g/dL (6.6-8.7)
[2024-08-23 13:25] LABS: Basophils # 0.2 10^3/uL (0.0-0.1); Basophils % 2.8 %; Eosinophils # 0.7 10^3/uL (0.0-0.8); Eosinophils % 11.2 %; Hematocrit 40.4 % (36-47); Lymphocytes # 1.1 10^3/uL (0.8-4.8); Mean Corpuscular HGB Conc 33.4 g/dL (30-55); Mean Corpuscular Hemoglobin 31.1 pg (27-33); Mean Corpuscular Volume 93.1 fl (85-98); Mean Platelet Volume 10.8 fL (7.4-10.4); Monocytes # 0.7 10^3/uL (0.2-0.9); Monocytes % 11.2 %; Neutrophils % 55.1 %; Nucleated Red Blood Cells % 0 %; Platelet Count 179 10^3/cmm (157-399); Red Blood Count 4.34 10^6/uL (3.85-5.65); Red Cell Distribution Width 18.6 % (12.1-15.1)
[2024-08-23 13:42] LABS: Alanine Aminotransferase 29 U/L (0-33); Albumin Level 4.4 g/dL (3.5-5.2); Alkaline Phosphatase 120 U/L (35-105); Blood Urea Nitrogen 14 mg/dL (8-23); Calcium 10.3 mg/dL (8.5-10.5); Carbon Dioxide 24 mmol/L (22-29); Chloride 98 mmol/L (98-107); Globulin 2.3 g/dL (1.3-4.6); Glomerular Filtration Rate 63.4 mL/min (90-130); Glucose 84 mg/dL (65-115); Osmolality Calculated 282 mOsm/kg (285-295); Sodium 136 mmol/L (136-145); Total Bilirubin 0.4 mg/dL (0.15-1.2); Total Protein 6.7 g/dL (6.6-8.7)
[2024-08-23 13:48] LABS: Anion Gap 17.5 (5-19); Potassium 3.5 mmol/L (3.5-5.1)
[2024-08-23 13:49] LABS: Aspartate Amino Transferase 21 U/L (0-32); Lactate Dehydrogenase 201 U/L (135-214)
[2024-08-29 08:25] LABS: Basophils # 0.1 10^3/uL (0.0-0.1); Eosinophils # 0.3 10^3/uL (0.0-0.8); Eosinophils % 6.7 %; Hematocrit 39.8 % (36-47); Lymphocytes % 22.9 %; Mean Corpuscular HGB Conc 32.2 g/dL (30-55); Mean Corpuscular Volume 93.4 fl (85-98); Mean Platelet Volume 9.9 fL (7.4-10.4); Monocytes # 0.5 10^3/uL (0.2-0.9); Monocytes % 11.1 %; Neutrophils # 2.42 10^3/uL (1.8-7.7); Neutrophils % 55.8 %; Nucleated Red Blood Cells % 0 %; Platelet Count 189 10^3/cmm (157-399); Red Blood Count 4.26 10^6/uL (3.85-5.65); Red Cell Distribution Width 18.3 % (12.1-15.1); White Blood Count 4.33 10^3/uL (3.29-11.43)
[2024-08-29 08:47] LABS: Alanine Aminotransferase 27 U/L (0-33); Alkaline Phosphatase 122 U/L (35-105); Blood Urea Nitrogen 16 mg/dL (8-23); Calcium 9.8 mg/dL (8.5-10.5); Carbon Dioxide 25 mmol/L (22-29); Chloride 103 mmol/L (98-107); Globulin 2.2 g/dL (1.3-4.6); Glomerular Filtration Rate 56.2 mL/min (90-130); Glucose 124 mg/dL (65-115); Osmolality Calculated 291 mOsm/kg (285-295); Sodium 139 mmol/L (136-145); Total Bilirubin 0.4 mg/dL (0.15-1.2); Total Protein 6.2 g/dL (6.6-8.7)
[2024-08-29 08:52] LABS: Anion Gap 14.5 (5-19); Potassium 3.5 mmol/L (3.5-5.1)
[2024-08-29 08:53] LABS: Aspartate Amino Transferase 23 U/L (0-32); Lactate Dehydrogenase 190 U/L (135-214)
[2024-08-29] MEDS: acetaminophen 325 mg Tablet 650 MG PO (10:58)
[2024-08-29] MEDS: diphenhydrAMINE 50 mg/mL SDV 1mL 25 MG IVP (10:58)
[2024-08-29] MEDS: rituximab-abbs 500 MG, rituximab-abbs 150 MG in sodium chloride 0.9% 500 ML 115 MG IV (11:45)
[2024-08-29 11:47] VITALS: BP 110/75; PULSE 58; RESP 16; TEMP 37; O2SAT 98
[2024-08-29 12:16] VITALS: BP 98/54; PULSE 59; RESP 14; TEMP 37.1; O2SAT 98
[2024-08-29 12:50] VITALS: BP 101/56; PULSE 60; RESP 15; TEMP 36.6; O2SAT 98
[2024-08-29 13:21] VITALS: BP 94/48; PULSE 61; RESP 15; TEMP 37.1; O2SAT 98
[2024-08-29 14:06] VITALS: BP 116/76; PULSE 60; RESP 16; TEMP 37; O2SAT 99
== END 2024-09-06 23:59 | disposition home or self-care (01) ==
PROVIDERS: PCP Family Medicine; Visit Provider Internal Medicine
DX: Z51.12 Encounter for antineoplastic immunotherapy (principal); C82.38 Follicular lymphoma grade IIIa, lymph nodes of multiple sites; Z87.891 Personal history of nicotine dependence; R74.01 Elevation of levels of liver transaminase levels; Z79.899 Other long term (current) drug therapy; Z53.9 Procedure and treatment not carried out, unspecified reason
CPT/HCPCS: 36415; 80053; 83615; 85025; 96375; 96413; 96415; 96523; J1200; J7040; Q5115

== ENCOUNTER 2024-09-26 07:46 | Oncology outpatient (recurring) (ONCR) | payer OTHER, SELFPAY ==
[2024-09-26 08:27] LABS: Basophils # 0.1 10^3/uL (0.0-0.1); Basophils % 1.3 %; Eosinophils # 0.5 10^3/uL (0.0-0.8); Hematocrit 42.8 % (36-47); Lymphocytes # 0.7 10^3/uL (0.8-4.8); Lymphocytes % 18.6 %; Mean Corpuscular HGB Conc 32.9 g/dL (30-55); Mean Corpuscular Volume 94.1 fl (85-98); Mean Platelet Volume 11.1 fL (7.4-10.4); Monocytes # 0.3 10^3/uL (0.2-0.9); Monocytes % 8.4 %; Neutrophils # 2.27 10^3/uL (1.8-7.7); Neutrophils % 59.4 %; Nucleated Red Blood Cells % 0 %; Platelet Count 138 10^3/cmm (157-399); Red Blood Count 4.55 10^6/uL (3.85-5.65); Red Cell Distribution Width 15.2 % (12.1-15.1); White Blood Count 3.82 10^3/uL (3.29-11.43)
[2024-09-26 08:44] LABS: Alanine Aminotransferase 38 U/L (0-33); Albumin Level 4.4 g/dL (3.5-5.2); Alkaline Phosphatase 169 U/L (35-105); Blood Urea Nitrogen 14 mg/dL (8-23); Calcium 10.2 mg/dL (8.5-10.5); Carbon Dioxide 26 mmol/L (22-29); Chloride 98 mmol/L (98-107); Globulin 2.5 g/dL (1.3-4.6); Glomerular Filtration Rate 56.2 mL/min (90-130); Glucose 88 mg/dL (65-115); Osmolality Calculated 286 mOsm/kg (285-295); Sodium 138 mmol/L (136-145); Total Bilirubin 0.4 mg/dL (0.15-1.2); Total Protein 6.9 g/dL (6.6-8.7)
[2024-09-26 08:48] LABS: Aspartate Amino Transferase 29 U/L (0-32); Lactate Dehydrogenase 217 U/L (135-214)
[2024-09-26] MEDS: sodium chloride 0.9% 250 ML 75 ML IV (12:48)
[2024-09-26] MEDS: acetaminophen 325 mg Tablet 650 MG PO (12:48)
[2024-09-26] MEDS: diphenhydrAMINE 50 mg/mL SDV 1mL 25 MG IVP (12:48)
[2024-09-26 13:39] VITALS: BP 120/75; PULSE 56; RESP 18; TEMP 36.4; O2SAT 99
[2024-09-26] MEDS: rituximab-abbs 500 MG, rituximab-abbs 150 MG in sodium chloride 0.9% 500 ML 89.2 MG IV (13:39)
[2024-09-26 14:10] VITALS: BP 116/79; PULSE 61; RESP 18; TEMP 36.7
[2024-09-26 14:40] VITALS: BP 115/62; PULSE 53; RESP 18; TEMP 37.1; O2SAT 99
== END 2024-10-07 23:59 | disposition home or self-care (01) ==
PROVIDERS: PCP Family Medicine; Visit Provider Internal Medicine Medical Oncology
DX: Z51.12 Encounter for antineoplastic immunotherapy (principal); C82.38 Follicular lymphoma grade IIIa, lymph nodes of multiple sites; Z79.899 Other long term (current) drug therapy
CPT/HCPCS: 80053; 83615; 85025; 96413; 96415; J1200; J7040; J7050; Q5115

== ENCOUNTER 2024-11-01 07:34 | Oncology outpatient (recurring) (ONCR) | payer OTHER, SELFPAY ==
[2024-11-01 08:06] LABS: Basophils % 0.8 %; Eosinophils # 0.1 10^3/uL (0.0-0.8); Hematocrit 39.7 % (36-47); Lymphocytes # 0.5 10^3/uL (0.8-4.8); Lymphocytes % 10.2 %; Mean Corpuscular HGB Conc 32.7 g/dL (30-55); Mean Corpuscular Hemoglobin 30.7 pg (27-33); Mean Corpuscular Volume 93.9 fl (85-98); Mean Platelet Volume 10.1 fL (7.4-10.4); Monocytes # 0.2 10^3/uL (0.2-0.9); Neutrophils # 3.98 10^3/uL (1.8-7.7); Neutrophils % 82.8 %; Nucleated Red Blood Cells % 0 %; Platelet Count 122 10^3/cmm (157-399); Red Blood Count 4.23 10^6/uL (3.85-5.65); Red Cell Distribution Width 14.3 % (12.1-15.1); White Blood Count 4.81 10^3/uL (3.29-11.43)
[2024-11-01 08:23] LABS: Alanine Aminotransferase 24 U/L (0-33); Alkaline Phosphatase 160 U/L (35-105); Blood Urea Nitrogen 17 mg/dL (8-23); Carbon Dioxide 23 mmol/L (22-29); Chloride 101 mmol/L (98-107); Globulin 2.9 g/dL (1.3-4.6); Glomerular Filtration Rate 56.2 mL/min (90-130); Glucose 115 mg/dL (65-115); Osmolality Calculated 290 mOsm/kg (285-295); Sodium 139 mmol/L (136-145); Total Bilirubin 0.4 mg/dL (0.15-1.2); Total Protein 6.9 g/dL (6.6-8.7)
[2024-11-01 08:26] LABS: Anion Gap 18.6 (5-19); Aspartate Amino Transferase 25 U/L (0-32); Potassium 3.6 mmol/L (3.5-5.1)
[2024-11-01 08:27] LABS: Lactate Dehydrogenase 200 U/L (135-214)
[2024-11-01] MEDS: sodium chloride 0.9% 250 ML 75 ML IV (12:41)
[2024-11-01] MEDS: acetaminophen 325 mg Tablet 650 MG PO (12:45)
[2024-11-01] MEDS: diphenhydrAMINE 50 mg/mL SDV 1mL 25 MG IVP (12:46)
[2024-11-01 13:25] VITALS: BP 104/68; PULSE 59; RESP 16; TEMP 37.2; O2SAT 96
[2024-11-01] MEDS: rituximab-abbs 500 MG, rituximab-abbs 150 MG in sodium chloride 0.9% 500 ML 188.33 MG IV (13:25)
[2024-11-01 13:55] VITALS: BP 98/62; PULSE 59; RESP 17; TEMP 36.7; O2SAT 98
[2024-11-01 14:35] VITALS: BP 96/60; PULSE 57; RESP 16; TEMP 36.5; O2SAT 95
[2024-11-01 16:10] VITALS: BP 108/66; PULSE 59; RESP 16; TEMP 36.7; O2SAT 96
== END 2024-11-04 23:59 | disposition home or self-care (01) ==
PROVIDERS: PCP Family Medicine; Visit Provider Internal Medicine Medical Oncology
DX: Z51.12 Encounter for antineoplastic immunotherapy (principal); C82.38 Follicular lymphoma grade IIIa, lymph nodes of multiple sites; Z79.899 Other long term (current) drug therapy
CPT/HCPCS: 80053; 83615; 85025; 96375; 96413; 96415; J1200; J7040; J7050; Q5115

== ENCOUNTER 2025-02-03 07:34 | Oncology outpatient (recurring) (ONCR) | payer OTHER, SELFPAY ==
[2025-02-03 08:03] LABS: Basophils % 0.8 %; Eosinophils % 0.6 %; Hematocrit 32.8 % (36-47); Lymphocytes # 0.3 10^3/uL (0.8-4.8); Lymphocytes % 6.9 %; Mean Corpuscular HGB Conc 33.2 g/dL (30-55); Mean Corpuscular Hemoglobin 29.7 pg (27-33); Mean Corpuscular Volume 89.4 fl (85-98); Mean Platelet Volume 9.9 fL (7.4-10.4); Monocytes % 0.2 %; Neutrophils # 3.82 10^3/uL (1.8-7.7); Nucleated Red Blood Cells % 0 %; Platelet Count 110 10^3/cmm (157-399); Red Blood Count 3.67 10^6/uL (3.85-5.65); Red Cell Distribution Width 12.7 % (12.1-15.1); White Blood Count 4.78 10^3/uL (3.29-11.43)
[2025-02-03 08:32] VITALS: BP 125/73; PULSE 67; RESP 17; TEMP 36.8; O2SAT 99
[2025-02-03 08:48] LABS: Slide Review Slide Review Perform
--- NOTE | 2025-02-03 11:26 | PC.NURSE ---
Patient's labs were drawn and patient did not need a blood or platelet transfusion. Patient had concerns of her upper right eye having a reddish spot on the white of her eye. Patient felt like it was dripping blood and was worried about it. THis nurse tried to call the nurse coordinator Eliana at [facility] but she was out of office but there was a number to reach another nurse Teodora if any questions or concerns. This nurse tried to call Teodora but no answer. This nurse let the patient know and about trying to reach the other nurse coordinator Teodora but no answer. I gave the patient the number for the nurse coordinator and she was going to try to reach her as well in regards to reddish spot on her right eye. Patient also was calling [facility] to try and get an appt for today. Patient is scheduled to come in on Thursday02/06/25 at 0730 for another lab draw and possible transfusion.
== END 2025-02-04 23:59 | disposition home or self-care (01) ==
PROVIDERS: Internal Medicine Medical Oncology; PCP Family Medicine; Visit Provider Internal Medicine
DX: C82.38 Follicular lymphoma grade IIIa, lymph nodes of multiple sites (principal)
CPT/HCPCS: 85025; 86850; 86900

== ENCOUNTER 2025-03-02 08:02 | Oncology outpatient (recurring) (ONCR) | payer OTHER, SELFPAY ==
[2025-02-06 08:16] LABS: Basophils % 3.2 %; Eosinophils % 3.2 %; Hematocrit 33.7 % (36-47); Lymphocytes # 0.2 10^3/uL (0.8-4.8); Lymphocytes % 77.4 %; Mean Corpuscular HGB Conc 32.9 g/dL (30-55); Mean Corpuscular Hemoglobin 29.6 pg (27-33); Mean Corpuscular Volume 89.9 fl (85-98); Mean Platelet Volume 11.2 fL (7.4-10.4); Monocytes % 12.9 %; Neutrophils % 3.3 %; Nucleated Red Blood Cells % 0 %; Platelet Count 48 10^3/cmm (157-399); Red Blood Count 3.75 10^6/uL (3.85-5.65); Red Cell Distribution Width 12.5 % (12.1-15.1)
[2025-02-06 08:18] LABS: Neutrophils # 0.01 10^3/uL (1.8-7.7); White Blood Count 0.31 10^3/uL (3.29-11.43)
--- NOTE | 2025-02-06 09:49 | PC.NURSE ---
This nurse let the patient know that her WBC 0.31 and her ANC was 0.01 in which was critical. I did tell her to keep a mask on if out in public and to use good hand washing. I also let her know that her Hgb was 11.10 and her Plt were 48 so she did not need a transfusion. I asked her if Dr. Ashley Miller at [facility] had given her any antibiotics in case she did start running a temp and she let me know that they had not. She did tell me that they had warned her that Thursday and Thursday will be her worst days following chemo. I did let her know that I did faxed her labs results to the nurse Mildred and hopefully she received both Fridays and . I told her to reach out to Mildred in case she had any questions. Patient's port was deaccessed and appt was made for her to come back in on 02/09/25. Patient had no questions or concerns at this time.
[2025-02-09 08:04] LABS: Basophils % 0.2 %; Eosinophils % 0.1 %; Lymphocytes # 0.7 10^3/uL (0.8-4.8); Lymphocytes % 8.2 %; Mean Corpuscular HGB Conc 33.4 g/dL (30-55); Mean Corpuscular Hemoglobin 29.3 pg (27-33); Mean Corpuscular Volume 87.7 fl (85-98); Mean Platelet Volume 9.5 fL (7.4-10.4); Monocytes # 1.4 10^3/uL (0.2-0.9); Monocytes % 16.2 %; Neutrophils # 4.42 10^3/uL (1.8-7.7); Neutrophils % 53.2 %; Nucleated Red Blood Cells # 0.1 /100WBC; Nucleated Red Blood Cells % 0.8 %; Platelet Count 118 10^3/cmm (157-399); Red Blood Count 3.65 10^6/uL (3.85-5.65); Red Cell Distribution Width 12.7 % (12.1-15.1); White Blood Count 8.32 10^3/uL (3.29-11.43)
[2025-02-09 09:05] LABS: Slide Review Slide Review Perform
--- NOTE | 2025-02-09 09:11 | PC.NURSE ---
This nurse let patient know that her Hgb was 10.70 and Plt 118. Patient will not need a blood or plt transfusion. Patient's port was deaccessed. THis nurse did let patient know to still do precautionary mask wearing and good hand washing. Her ANC 4.42 which is much better. Patient acknowledged understanding and no other questions. Lab results will be faxed to [facility]
[2025-02-24 08:18] LABS: Hematocrit 29.9 % (36-47); Lymphocytes # 0.1 10^3/uL (0.8-4.8); Lymphocytes % 4.6 %; Mean Corpuscular HGB Conc 33.8 g/dL (30-55); Mean Corpuscular Hemoglobin 29.7 pg (27-33); Mean Corpuscular Volume 87.9 fl (85-98); Monocytes % 0.7 %; Neutrophils # 2.42 10^3/uL (1.8-7.7); Neutrophils % 79.6 %; Nucleated Red Blood Cells % 0 %; Platelet Count 77 10^3/cmm (157-399); Red Cell Distribution Width 15.1 % (12.1-15.1); White Blood Count 3.04 10^3/uL (3.29-11.43)
[2025-02-24 08:49] LABS: Slide Review Slide Review Perform
[2025-02-27 08:42] LABS: Basophils % 5.9 %; Eosinophils % 5.9 %; Hematocrit 27.7 % (36-47); Lymphocytes # 0.1 10^3/uL (0.8-4.8); Lymphocytes % 70.6 %; Mean Corpuscular HGB Conc 32.9 g/dL (30-55); Mean Corpuscular Hemoglobin 29.2 pg (27-33); Mean Corpuscular Volume 88.8 fl (85-98); Mean Platelet Volume 11.4 fL (7.4-10.4); Monocytes % 11.8 %; Neutrophils % 5.8 %; Nucleated Red Blood Cells % 0 %; Platelet Count 36 10^3/cmm (157-399); Red Blood Count 3.12 10^6/uL (3.85-5.65); Red Cell Distribution Width 14.5 % (12.1-15.1)
[2025-02-27 09:26] LABS: Neutrophils # 0.01 10^3/uL (1.8-7.7); White Blood Count 0.17 10^3/uL (3.29-11.43)
[2025-02-27 09:27] LABS: Slide Review Slide Review Perform
--- NOTE | 2025-02-27 10:54 | PC.NURSE ---
Addendum entered by Gisele Hastings RN 02/27/25 11:44: Patient's labs came back and patient did not need blood or plt today. Patient's ANC is 0.01 and WBC is 0.17. This nurse let the patient know to wear a mask, isolate if possible, and to do good handwashing. This nurse will fax the results to Dr. Ashley Ruffin at [facility]. Patient had no other questions or concerns. Original Note: Patient's labs came back and patient did not need blood or plt today. Patient's ANC is 0.01 and WBC is 0.17
[2025-03-02 09:00] LABS: Hematocrit 25.7 % (36-47); Mean Corpuscular HGB Conc 34.6 g/dL (30-55); Mean Corpuscular Hemoglobin 30.3 pg (27-33); Mean Corpuscular Volume 87.4 fl (85-98); Mean Platelet Volume 11.1 fL (7.4-10.4); Platelet Count 71 10^3/cmm (157-399); Red Blood Count 2.94 10^6/uL (3.85-5.65); Red Cell Distribution Width 14.6 % (12.1-15.1); White Blood Count 2.53 10^3/uL (3.29-11.43)
[2025-03-02 10:14] LABS: Slide Review Slide Review Perform
[2025-03-02 10:15] LABS: Absolute Neutrophil 1.7 10^3/cmm (1.4-6.5); Absolute Segmented Neutrophil 1.3 10/cmm (1.6-7.1); Band Neutrophils Absolute 0.4 10^3/cmm (0.0-1.2); Dohle Bodies 1+; Eosinophils 0 %; Lymphocytes 12 %; Lymphocytes Absolute 0.3 10^3/cmm (1.2-3.4); Macrocytosis 1+; Monocytes Absolute 0.1 10^3/cmm (0.1-0.6); Platelet Estimate Decreased (Normal); Polychromasia 1+; Segmented Neutrophils 50 %; Total Cells Counted 100 (0-100)
== END 2025-03-06 23:59 | disposition home or self-care (01) ==
PROVIDERS: Internal Medicine Medical Oncology; Student in an Organized Health Care Education/Training Program; PCP Family Medicine; Visit Provider Internal Medicine
DX: C82.38 Follicular lymphoma grade IIIa, lymph nodes of multiple sites; Z53.9 Procedure and treatment not carried out, unspecified reason
CPT/HCPCS: 36591; 85007; 85025; 86850; 86900

== ENCOUNTER 2025-03-24 08:00 | Oncology outpatient (recurring) (ONCR) | payer OTHER, SELFPAY ==
[2025-03-17 08:17] LABS: Hematocrit 27.3 % (36-47); Hemoglobin 9.20 g/dL (11.27-16.99); Mean Corpuscular HGB Conc 33.7 g/dL (30-55); Mean Corpuscular Hemoglobin 30.8 pg (27-33); Mean Corpuscular Volume 91.3 fl (85-98); Nucleated Red Blood Cells % 0 %; Platelet Count 107 10^3/cmm (157-399); Red Blood Count 2.99 10^6/uL (3.85-5.65); White Blood Count 2.50 10^3/uL (3.29-11.43)
[2025-03-17 09:31] LABS: Slide Review Slide Review Perform
[2025-03-20 08:33] LABS: Hematocrit 24.9 % (36-47); Hemoglobin 8.40 g/dL (11.27-16.99); Mean Corpuscular HGB Conc 33.7 g/dL (30-55); Mean Corpuscular Hemoglobin 30.1 pg (27-33); Mean Corpuscular Volume 89.2 fl (85-98); Nucleated Red Blood Cells % 0 %; Platelet Count 53 10^3/cmm (157-399); Red Blood Count 2.79 10^6/uL (3.85-5.65)
[2025-03-20 09:05] LABS: White Blood Count 0.21 10^3/uL (3.29-11.43)
[2025-03-20 09:06] LABS: Slide Review Slide Review Perform
[2025-03-23 08:45] LABS: Hematocrit 23.2 % (36-47); Hemoglobin 7.70 g/dL (11.27-16.99); Mean Corpuscular HGB Conc 33.2 g/dL (30-55); Mean Corpuscular Hemoglobin 30.4 pg (27-33); Mean Corpuscular Volume 91.7 fl (85-98); Platelet Count 114 10^3/cmm (157-399); Red Blood Count 2.53 10^6/uL (3.85-5.65); White Blood Count 10.96 10^3/uL (3.29-11.43)
[2025-03-23 09:11] LABS: Slide Review Slide Review Perform
[2025-03-23 09:16] LABS: Absolute Segmented Neutrophil 4.1 10/cmm (1.6-7.1); Band Neutrophils Absolute 2.1 10^3/cmm (0.0-1.2); Total Cells Counted 100 (0-100)
[2025-03-23 09:17] LABS: Atypical Lymphs 0.0 % (0-5)
[2025-03-24 08:35] VITALS: BP 110/69; PULSE 71; TEMP 36.4; O2SAT 98
[2025-03-24 08:50] VITALS: BP 106/60; PULSE 75; TEMP 36.5; O2SAT 99
[2025-03-24 09:05] VITALS: BP 114/74; PULSE 74; TEMP 36.6; O2SAT 99
[2025-03-24 09:37] VITALS: BP 113/74; PULSE 74; TEMP 36.2; O2SAT 99
[2025-03-24 10:38] VITALS: BP 106/64; PULSE 66; TEMP 36.2; O2SAT 99
== END 2025-04-06 23:59 | disposition home or self-care (01) ==
PROVIDERS: Internal Medicine Medical Oncology; Student in an Organized Health Care Education/Training Program; PCP Family Medicine; Visit Provider Internal Medicine
DX: Z53.9 Procedure and treatment not carried out, unspecified reason; D64.9 Anemia, unspecified; Z79.899 Other long term (current) drug therapy
CPT/HCPCS: 36415; 36430; 36591; 85007; 85025; 86850; 86900; 86920; 87040; 87086; 96360; J7030; J7050; P9051

== ENCOUNTER → 2025-04-12 13:41 | Outpatient (BNVA) | payer OTHER, SELFPAY | PROVIDERS: PCP Family Medicine; Visit Provider Nurse Practitioner | DX: J02.9 Acute pharyngitis, unspecified (principal); J06.9 Acute upper respiratory infection, unspecified; C82.38 Follicular lymphoma grade IIIa, lymph nodes of multiple sites | CPT/HCPCS: 87071; 87400; 87420; 87426; 87486; 87581; 87633; 87880 ==

== ENCOUNTER 2025-05-04 07:50 | Oncology outpatient (recurring) (ONCR) | payer OTHER, SELFPAY ==
[2025-04-07 08:25] LABS: Hematocrit 25.7 % (36-47); Hemoglobin 8.50 g/dL (11.27-16.99); Mean Corpuscular HGB Conc 33.1 g/dL (30-55); Mean Corpuscular Hemoglobin 31.0 pg (27-33); Mean Corpuscular Volume 93.8 fl (85-98); Nucleated Red Blood Cells % 0 %; Platelet Count 44 10^3/cmm (157-399); Red Blood Count 2.74 10^6/uL (3.85-5.65); White Blood Count 1.43 10^3/uL (3.29-11.43)
[2025-04-07 09:24] LABS: Slide Review Slide Review Perform
[2025-04-10] VITALS (7 sets, daily range): BP systolic 95–116; BP diastolic 64–75; PULSE 66–90; RESP 17; TEMP 36.6–37.2; O2SAT 99
[2025-04-10 08:20] LABS: Hematocrit 22.9 % (36-47); Hemoglobin 7.90 g/dL (11.27-16.99); Mean Corpuscular HGB Conc 34.5 g/dL (30-55); Mean Corpuscular Hemoglobin 32.0 pg (27-33); Mean Corpuscular Volume 92.7 fl (85-98); Red Blood Count 2.47 10^6/uL (3.85-5.65)
[2025-04-10 09:28] LABS: Slide Review Slide Review Perform
[2025-04-10 09:37] LABS: Absolute Segmented Neutrophil 0.0 10/cmm (1.6-7.1); Band Neutrophils Absolute 0.0 10^3/cmm (0.0-1.2); Platelet Count 11 10^3/cmm (157-399); Total Cells Counted 11 (0-100); White Blood Count 0.09 10^3/uL (3.29-11.43)
[2025-04-10 09:38] LABS: Atypical Lymphs 27.0 % (0-5)
[2025-04-13 08:35] LABS: Hematocrit 30.9 % (36-47); Hemoglobin 10.40 g/dL (11.27-16.99); Mean Corpuscular HGB Conc 33.7 g/dL (30-55); Mean Corpuscular Hemoglobin 30.6 pg (27-33); Mean Corpuscular Volume 90.9 fl (85-98); Platelet Count 71 10^3/cmm (157-399); Red Blood Count 3.40 10^6/uL (3.85-5.65); White Blood Count 7.12 10^3/uL (3.29-11.43)
[2025-04-13 08:56] LABS: Absolute Segmented Neutrophil 2.7 10/cmm (1.6-7.1); Atypical Lymphs 7.0 % (0-5); Band Neutrophils Absolute 1.1 10^3/cmm (0.0-1.2); Total Cells Counted 100 (0-100)
[2025-04-28 08:40] LABS: Hematocrit 25.1 % (36-47); Hemoglobin 8.40 g/dL (11.27-16.99); Mean Corpuscular HGB Conc 33.5 g/dL (30-55); Mean Corpuscular Hemoglobin 31.6 pg (27-33); Mean Corpuscular Volume 94.4 fl (85-98); Platelet Count 41 10^3/cmm (157-399); Red Blood Count 2.66 10^6/uL (3.85-5.65); White Blood Count 6.61 10^3/uL (3.29-11.43)
[2025-04-28 09:23] LABS: Total Cells Counted 100 (0-100)
[2025-04-28 09:28] LABS: Absolute Segmented Neutrophil 5.6 10/cmm (1.6-7.1); Atypical Lymphs 2.0 % (0-5); Band Neutrophils Absolute 0.3 10^3/cmm (0.0-1.2)
[2025-05-01 08:44] LABS: Hematocrit 24.0 % (36-47); Hemoglobin 8.40 g/dL (11.27-16.99); Mean Corpuscular HGB Conc 35.0 g/dL (30-55); Mean Corpuscular Hemoglobin 32.8 pg (27-33); Mean Corpuscular Volume 93.8 fl (85-98); Nucleated Red Blood Cells % 0 %; Red Blood Count 2.56 10^6/uL (3.85-5.65)
[2025-05-01 09:42] LABS: Slide Review Slide Review Perform
[2025-05-01 09:59] LABS: Platelet Count 15 10^3/cmm (157-399); White Blood Count 0.18 10^3/uL (3.29-11.43)
[2025-05-01 14:21] VITALS: BP 105/65; PULSE 83; RESP 17; TEMP 36.1; O2SAT 98
[2025-05-04] VITALS (9 sets, daily range): BP systolic 92–121; BP diastolic 49–76; PULSE 61–82; RESP 16–18; TEMP 36.4–36.6; O2SAT 97–100
[2025-05-04 09:31] LABS: Mean Corpuscular HGB Conc 32.1 g/dL (30-55); Mean Corpuscular Hemoglobin 31.3 pg (27-33); Mean Corpuscular Volume 97.5 fl (85-98); Platelet Count 65 10^3/cmm (157-399); Red Blood Count 1.98 10^6/uL (3.85-5.65); White Blood Count 1.45 10^3/uL (3.29-11.43)
[2025-05-04 09:43] LABS: Absolute Segmented Neutrophil 0.9 10/cmm (1.6-7.1); Band Neutrophils Absolute 0.3 10^3/cmm (0.0-1.2); Hematocrit 19.3 % (36-47); Hemoglobin 6.20 g/dL (11.27-16.99); Slide Review Slide Review Perform; Total Cells Counted 100 (0-100)
[2025-05-04 09:44] LABS: Atypical Lymphs 2.0 % (0-5)
== END 2025-05-07 23:59 | disposition home or self-care (01) ==
PROVIDERS: Internal Medicine Medical Oncology; PCP Family Medicine; Visit Provider Internal Medicine
DX: D64.9 Anemia, unspecified (principal); C82.38 Follicular lymphoma grade IIIa, lymph nodes of multiple sites
CPT/HCPCS: 36430; 36591; 85007; 85025; 86850; 86900; 86920; P9016; P9037; P9040; P9058

== ENCOUNTER 2025-05-31 08:00 | Oncology outpatient (recurring) (ONCR) | payer OTHER, SELFPAY ==
[2025-05-26 08:26] LABS: Hematocrit 31.4 % (36-47); Hemoglobin 10.40 g/dL (11.27-16.99); Mean Corpuscular HGB Conc 33.1 g/dL (30-55); Mean Corpuscular Hemoglobin 31.5 pg (27-33); Mean Corpuscular Volume 95.2 fl (85-98); Nucleated Red Blood Cells % 0 %; Platelet Count 44 10^3/cmm (157-399); Red Blood Count 3.30 10^6/uL (3.85-5.65); White Blood Count 9.23 10^3/uL (3.29-11.43)
[2025-05-26 09:21] LABS: Slide Review Slide Review Perform
[2025-05-29 08:47] LABS: Hematocrit 29.2 % (36-47); Hemoglobin 9.90 g/dL (11.27-16.99); Mean Corpuscular HGB Conc 33.9 g/dL (30-55); Mean Corpuscular Hemoglobin 32.1 pg (27-33); Mean Corpuscular Volume 94.8 fl (85-98); Platelet Count 32 10^3/cmm (157-399); Red Blood Count 3.08 10^6/uL (3.85-5.65)
[2025-05-29 09:41] LABS: Absolute Segmented Neutrophil 0.1 10/cmm (1.6-7.1); Atypical Lymphs 0.0 % (0-5); Band Neutrophils Absolute 0.0 10^3/cmm (0.0-1.2); Slide Review Slide Review Perform; Total Cells Counted 50 (0-100)
[2025-05-29 09:42] LABS: White Blood Count 0.44 10^3/uL (3.29-11.43)
--- NOTE | 2025-05-29 15:52 | PC.NURSE ---
Left a message for Denisse, nurse coordinator, to ensure she received the critical results from todays labs. Clinicals were left on the voicemail.
[2025-05-31 08:17] LABS: Hematocrit 27.7 % (36-47); Hemoglobin 9.30 g/dL (11.27-16.99); Mean Corpuscular HGB Conc 33.6 g/dL (30-55); Mean Corpuscular Hemoglobin 31.7 pg (27-33); Mean Corpuscular Volume 94.5 fl (85-98); Platelet Count 59 10^3/cmm (157-399); Red Blood Count 2.93 10^6/uL (3.85-5.65); White Blood Count 2.94 10^3/uL (3.29-11.43)
[2025-05-31 08:40] LABS: Slide Review Slide Review Perform
[2025-05-31 08:41] LABS: Absolute Segmented Neutrophil 1.8 10/cmm (1.6-7.1); Atypical Lymphs 0.0 % (0-5); Band Neutrophils Absolute 0.3 10^3/cmm (0.0-1.2); Giant Platelets Trace; Total Cells Counted 100 (0-100)
[2025-05-31 08:42] LABS: Anisocytosis 1+
== END 2025-06-06 23:59 | disposition home or self-care (01) ==
PROVIDERS: Internal Medicine Medical Oncology; Student in an Organized Health Care Education/Training Program; PCP Family Medicine; Visit Provider Internal Medicine Medical Oncology
DX: Z53.9 Procedure and treatment not carried out, unspecified reason; C82.38 Follicular lymphoma grade IIIa, lymph nodes of multiple sites
CPT/HCPCS: 36591; 85007; 85025; 86850; 86900

== ENCOUNTER 2025-08-17 08:05 | Oncology outpatient (recurring) (ONCR) | payer OTHER, SELFPAY | END 2025-09-06 23:59 | disposition home or self-care (01) | LOC: ONCMED 08:05 | PROVIDERS: PCP Family Medicine; Visit Provider Internal Medicine Medical Oncology | DX: Z45.2 Encounter for adjustment and management of vascular access device (principal); Z95.828 Presence of other vascular implants and grafts | CPT/HCPCS: 96523 ==